=== PATIENT | male | born 1975 | race Two or more races ===

== ENCOUNTER 2019-09-09 09:56 | Outpatient (CLI) | payer MEDICARE ==
[~2019-09-09] VITALS: Ht 167.6 cm; Wt 86.2 kg
[2019-09-09 13:20] VITALS: BP 152/100
[2019-09-09] MEDS ORDERED: HUMALOG100 UNIT/4 SUBQ (13:20)
[2019-09-09] MEDS ORDERED: HYDROCHLOROTHIA25 MG ORAL (13:20)
[2019-09-09] MEDS ORDERED: BENAZEPRIL HCL40 MG ORAL (13:20)
[2019-09-09] MEDS ORDERED: AMLODIPINE BES2.5 MG ORAL (13:20)
[2019-09-09] MEDS ORDERED: IBUPROFEN600 MG ORAL (13:20)
[2019-09-09] MEDS ORDERED: POTASSIUM CHLOR8 ME2 PO (13:20)
[2019-09-09] MEDS ORDERED: OMEPRAZOLE20 M2 ORAL (13:20)
== END 2019-09-09 12:56 | disposition home or self-care (01) ==
LOC: PAN 09:56
DX: R10.9 Unspecified abdominal pain (principal)
CPT/HCPCS: G0463

== ENCOUNTER 2019-09-10 07:27 | Day surgery (SDC) | payer MEDICARE, OTHER ==
[2019-09-10] VITALS (7 sets, daily range): BP systolic 142–176; BP diastolic 75–113
[~2019-09-10] VITALS: Ht 165.1 cm; Wt 86.2 kg
[~2019-09-10 07:27] MED LIST: AMLODIPINE BES2.5 MG ORAL; BENAZEPRIL HCL40 MG ORAL; HUMALOG100 UNIT/4 SUBQ; HYDROCHLOROTHIA25 MG ORAL; IBUPROFEN600 MG ORAL; OMEPRAZOLE20 M2 ORAL; POTASSIUM CHLOR8 ME2 PO
[2019-09-10] MEDS ORDERED: LR 1000ml 1,000 ML IVLG SCH (07:29)
[2019-09-10] MEDS ORDERED: fentaNYL 100 mcg/2 mL IV ONE (08:33)
[2019-09-10] MEDS ORDERED: Midazolam 2mg/2ml Inj ONE (08:33)
--- NOTE | 2019-09-10 08:52 | Anethesia Preoperative Eval ---
Anesthesia Pre-op PMH/ROS General Date of Evaluation: Sep 10, 2019 Time of Evaluation: 08:49 Anesthesiologist: Issa ASA Score: ASA 3 Mallampati Score Class I : Soft palate, uvula, fauces, pillars visible Class II: Soft palate, uvula, fauces visible Class III: Soft palate, base of uvula visible Class IV: Only hard plate visible Mallampati Classification: Class III Surgeon: Chau Diagnosis: Abdominal pain Surgical Procedure: EGD Anesthesia History: none Family History: no anesthesia problems Allergies: Coded Allergies: No Known Allergies (Unverified , 09/09/19) Medications: see eMAR Patient NPO?: Yes Past Medical History Cardiovascular: Reports: HTN - stable on meds; Denies: CAD, OH, valve dz, arrhythmia, other Pulmonary: Denies: asthma, COPD, VINCENT, other Gastrointestinal/Genitourinary: Reports: GERD Neurologic/Psychiatric: Denies: dementia, CVA, depression/anxiety, TIA, other Endocrine: Reports: DM; Denies: hypothyroidism, steroids, other HEENT: Reports: cataract (L), cataract (R); Denies: glaucoma, ANVIK (L), ANVIK (R), other Hematology/Immune: Denies: anemia, DVT, bleeding disorder, other Musculoskeletal/Integumentary: Denies: OA, RA, DJD, DDD, edema, other Other: obesity PMH Narrative: as above PSxH Narrative: See H&P Anesthesia Pre-op Phys. Exam Physician Exam Last Vital Signs Date Time Temp Pulse Resp B/P (MAP) Pulse Ox O2 Delivery O2 Flow Rate FiO2 09/10/19 08:15 Room Air Constitutional: NAD Neurologic: CN 2-12 intact Cardiovascular: RRR, no M/R/G Respiratory: CTA Gastrointestinal: S/NT/ND Airway Exam Mallampati Score: Class II MO: limited Neck: stiff ROM: limited Teeth: missing Dentures: no upper, no lower Anesthesia Pre-op A/P Labs see chart Studies Pre-op Studies: EKG - SR Risk Assessment & Plan Assessment: ASA 3 Plan: MAC Status Change Before Surgery: Mao Nuñez MD Sep 10, 2019 08:52
[2019-09-10 08:57] LABS: BASOPHILS % (AUTO) 1.5 % (0.0-2.0); EOSINOPHILS % (AUTO) 1.1 % (0.0-3.0); HEMATOCRIT 32.6 % (42.0-52.0); HEMOGLOBIN 11.3 G/DL (14.2-18.0); LYMPHOCYTES % (AUTO) 29.4 % (20.0-45.0); MEAN CORPUSCULAR VOLUME 90 FL (80-99); MONOCYTES % (AUTO) 8.4 % (1.0-10.0); NEUTROPHILS % (AUTO) 59.6 % (45.0-75.0); PLATELET COUNT 146 K/UL (150-450); RED BLOOD COUNT 3.61 M/UL (4.70-6.10); RED CELL DISTRIBUTION WIDTH 11.5 % (11.6-14.8)
[2019-09-10] MEDS ORDERED: LR 1000ml ONE (09:00)
[2019-09-10] MEDS ORDERED: Propofol 200mg/20ml IV ONE (09:00)
--- NOTE | 2019-09-10 09:03 | Pre-Procedure Note/Attestation ---
Pre-Procedure Note/Attestation Complete Prior to Procedure Planned Procedure: not applicable Procedure Narrative: egd Indications for Procedure Pre-Operative Diagnosis: abd pain Attestation I attest that I discussed the nature of the procedure; its benefits; risks and complications; and alternatives (and the risks and benefits of such alternatives ), prior to the procedure, with the patient (or the patient's legal underwriting account representative). I attest that, if there was a reasonable possibility of needing a blood transfusion, the patient (or the patient's legal underwriting account representative) was given the [facility] standardized written summary, pursuant to the Zeb Abel Blood Safety Act ([place] Health and Safety Code # 1645, as amended). I attest that I re-evaluated the patient just prior to the surgery and that there has been no change in the patient's H&P, except as documented below: Puneet Ritchie MD Sep 10, 2019 09:03
--- NOTE | 2019-09-10 09:04 | Short Stay Surgery H&P ---
History of Present Illness History of Present Illness Chief Complaint abd pain HPI Jone Fuentes is a 44 year old male who was admitted on for GERD Patient History Allergies: Coded Allergies: No Known Allergies (Unverified , 09/09/19) PAST MEDICAL HISTORY: (1) DM (diabetes mellitus) (2) mental retardation (3) HTN (hypertension) Medication History Scheduled Amlodipine Besylate* (Amlodipine Besylate*), 2.5 MG ORAL DAILY, (Reported) Benazepril Hcl* (Benazepril Hcl*), 40 MG ORAL DAILY, (Reported) Hydrochlorothiazide* (Hydrochlorothiazide*), 25 MG ORAL DAILY, (Reported) Omeprazole (Omeprazole), 20 MG ORAL DAILY, (Reported) Potassium Chloride (Potassium Chloride), 8 MEQ PO DAILY, (Reported) Scheduled PRN Ibuprofen* (Motrin*), 400 MG ORAL Q6H PRN for For Pain, (Reported) Miscellaneous Medications Insulin Lispro (Humalog), 0 SUBQ, (Reported) Review of Systems Cardiovascular: Reports: no symptoms Respiratory: Reports: no symptoms Skeletal: Reports: no symptoms Gastrointestinal: Reports: gastro esophageal reflux disease Genitourinary: Reports: no symptoms Neurologic: Reports: no symptoms Endocrine: Reports: no symptoms Hematologic: Reports: no symptoms Physical Exam Vital Signs Last Vital Signs Date Time Temp Pulse Resp B/P (MAP) Pulse Ox O2 Delivery O2 Flow Rate FiO2 09/10/19 08:15 Room Air Labs Laboratory Tests Test 09/10/19 05:35 White Blood Count 6.0 K/UL (4.8-10.8) Red Blood Count 3.61 M/UL (4.70-6.10) L Hemoglobin 11.3 G/DL (14.2-18.0) L Hematocrit 32.6 % (42.0-52.0) L Mean Corpuscular Volume 90 FL (80-99) Mean Corpuscular Hemoglobin 31.2 PG (27.0-31.0) H Mean Corpuscular Hemoglobin Concent 34.6 G/DL (32.0-36.0) Red Cell Distribution Width 11.5 % (11.6-14.8) L Platelet Count 146 K/UL (150-450) L Mean Platelet Volume 9.1 FL (6.5-10.1) Neutrophils (%) (Auto) 59.6 % (45.0-75.0) Lymphocytes (%) (Auto) 29.4 % (20.0-45.0) Monocytes (%) (Auto) 8.4 % (1.0-10.0) Eosinophils (%) (Auto) 1.1 % (0.0-3.0) Basophils (%) (Auto) 1.5 % (0.0-2.0) Sodium Level Pending Potassium Level Pending Chloride Level Pending Carbon Dioxide Level Pending Blood Urea Nitrogen Pending Creatinine Pending Estimat Glomerular Filtration Rate Pending Glucose Level Pending Calcium Level Pending Total Bilirubin Pending Aspartate Amino Transf (AST/SGOT) Pending Alanine Aminotransferase (ALT/SGPT) Pending Alkaline Phosphatase Pending Total Protein Pending Albumin Pending Globulin Pending Amylase Level Pending Lipase Pending Skin: normal HENT: normal Heart: normal Lungs: normal Abdomen: normal Extremities: normal Plan Plan of Care egd Attestation Are the patient's medical conditions optimized for surgery? Attestation Response: yes Puneet Ritchie MD Sep 10, 2019 09:04
[2019-09-10 09:09] LABS: ANION GAP 9 mmol/L (5-15); BLOOD UREA NITROGEN 33 mg/dL (7-18); CALCIUM 8.5 MG/DL (8.5-10.1); CARBON DIOXIDE 27 MMOL/L (21-32); CHLORIDE 105 MMOL/L (98-107); CREATININE 1.6 MG/DL (0.55-1.30); POTASSIUM 3.8 MMOL/L (3.5-5.1); SODIUM 141 MMOL/L (136-145)
[2019-09-10 09:13] LABS: ALANINE AMINOTRANSFERASE 20 U/L (12-78); ALBUMIN/GLOBULIN RATIO 0.8 (1.0-2.7); ALKALINE PHOSPHATASE 109 U/L (46-116); AMYLASE 47 U/L (25-115); ASPARTATE AMINO TRANSFERASE 18 U/L (15-37); BILIRUBIN,TOTAL 0.3 MG/DL (0.2-1.0)
--- NOTE | 2019-09-10 09:16 | Endoscopy Procedure Note ---
Endoscopy Procedure Note General Indication for Procedure: abd pain Procedures Performed: EGD Operative Findings/Diagnosis: gastritis Specimen: yes Pt Tolerated Procedure Well: Yes Estimated Blood Loss: none Anesthesia Anesthesiologist: britney Anesthesia: MAC Inserted Devices Implant(s) used?: No GI Core Measures 50 yrs or older w/o bx or poly: Not Applicable 10yrs. F/U recommended: Not Applicable Puneet Ritchie MD Sep 10, 2019 09:16
--- NOTE | 2019-09-10 09:24 | Immediate Post-Op Evaluation ---
Immediate Post-Op Evalulation Immediate Post-Op Evalulation Procedure: EGD with Bx Date of Evaluation: Sep 10, 2019 Time of Evaluation: 09:23 IV Fluids: 250 Blood Products: none Estimated Blood Loss: none Urinary Output: none Blood Pressure Systolic: 146 Blood Pressure Diastolic: 86 Pulse Rate: 88 Respiratory Rate: 20 O2 Sat by Pulse Oximetry: 99 Temperature (Fahrenheit): 97.6 Pain Score (1-10): 1 Nausea: No Vomiting: No Complications none Patient Status: awake, none Hydration Status: adequate Mao Parsons MD Sep 10, 2019 09:24
--- NOTE | 2019-09-10 11:17 | 48 Hour Post Anesthesia Eval ---
Post Anesthesia Evaluation Procedure: EGD with Bx Date of Evaluation: Sep 10, 2019 Time of Evaluation: 11:16 Blood Pressure Systolic: 148 0: 75 Pulse Rate: 82 Respiratory Rate: 20 Temperature (Fahrenheit): 97.6 O2 Sat by Pulse Oximetry: 98 Airway: patent Nausea: No Vomiting: No Pain Intensity: 1 Hydration Status: adequate Cardiopulmonary Status: stable Mental Status/LOC: patient returned to baseline Follow-up Care/Observations: n/a Post-Anesthesia Complications: none Follow-up care needed: ready to discharge Mao Parsons MD Sep 10, 2019 11:17
--- NOTE | 2019-09-10 17:30 | Consultation ---
DATE OF CONSULTATION: 09/09/2019 GASTROENTEROLOGY CONSULTATION CONSULTING PHYSICIAN: Puneet Ritchie M.D. REFERRING PHYSICIAN: Dr. Marinelli. CHIEF COMPLAINT: Abdominal pain. HISTORY OF PRESENT ILLNESS: Most of the history per caregiver. This is a 44-year-old male with mental retardation, hypertension, and diabetes, who was brought to us for evaluation of epigastric abdominal pain. Apparently, the patient has been in the emergency room multiple times and had imaging studies. According to the family, ultrasound was negative. Blood work has been negative. The patient is complaining of abdominal pain and referral was for possible endoscopy. PAST MEDICAL HISTORY: 1. Hypertension. 2. Diabetes. 3. Mental retardation. PAST SURGICAL HISTORY: Eye surgery. MEDICATIONS: Please see medication reconciliation list. FAMILY HISTORY: Noncontributory. SOCIAL HISTORY: Does not smoke tobacco, alcohol, or IV drug abuse. ALLERGIES: No known drug allergies. REVIEW OF SYSTEMS: Limited except for abdominal pain and bloating. PHYSICAL EXAMINATION: VITAL SIGNS: Temperature 97.8, blood pressure is 152/100, pulse is 94, and respirations 20. HEENT: Normocephalic and atraumatic. Poor dentition. NECK: Supple. No evidence of obvious lymphadenopathy. CARDIOVASCULAR: Tachycardiac. Regular rate. Plus S1, S2. LUNGS: Clear to auscultation bilaterally. ABDOMEN: Positive bowel sounds. Soft. Minimal tenderness to palpation in the epigastric area. No rebound. No guarding. No peritoneal sign. EXTREMITIES: No cyanosis. No clubbing. No edema. ASSESSMENT AND PLAN: This is a 44-year-old male with epigastric abdominal pain and negative workup according to the family including imaging studies. Plan to do an endoscopy tomorrow. The patient to be brought to [facility] for endoscopy tomorrow. We will also going to set up labs for tomorrow including CBC, CMP, amylase, and lipase. I want to thank, Dr. Marinelli, for this kind referral. Puneet Ritchie M.D. DR: GILBERT JOB#: [id number] CC: Dr. Marinelli
--- NOTE | 2019-09-10 18:00 | Procedure Note ---
DATE OF PROCEDURE: 09/10/2019 SURGEON: Puneet Ritchie M.D. REFERRING PHYSICIAN: Dr. Marinelli. PROCEDURE: Upper endoscopy with biopsy. ANESTHESIA: Per Dr. Parsons. INSTRUMENT: Olympus adult flexible upper endoscope. INDICATION: Abdominal pain. The procedure, risks, benefits, and possible consequences, including hemorrhage, aspiration, perforation and infection, and alternative treatments, were explained to the patient/legal guardian by Dr. Puneet Ritchie and the patient/legal guardian understood and accepted these risks. DESCRIPTION OF PROCEDURE: After informed consent was obtained and the patient was adequately sedated, Olympus upper endoscope was advanced from mouth into the second portion of the duodenum and retroflexion was performed in the stomach. The patient has evidence of diffuse gastritis. Random biopsies from antrum was obtained to rule out H. pylori infection. We had also incidental finding. We saw a very prominent minor ampulla. At this time, the upper endoscope was retrieved and the procedure was terminated. SUMMARY OF FINDINGS: 1. Gastritis, status post biopsy. 2. Very prominent minor ampulla. PLAN: Start the PPI daily. We are going to do liver function tests, amylase, and lipase for tomorrow. If there is any evidence of pancreatitis, the patient might benefit from MRCP to rule out pancreatic disease, but given the patient's mental retardation, the patient most probably would need an anesthesia for that. We will discuss with primary care physician and family when the results of the labs are available. I want to thank, Dr. Marinelli, for this kind referral. Puneet Ritchie M.D. DR: DIANA JOB#: [id number] CC: Dr. Marinelli
--- NOTE | 2019-09-11 12:49 | Cardiology Report ---
APPROVED REPORT EKG Measurement Heart [id number] Normal sinus rhythm Left axis deviation Pulmonary disease pattern Abnormal ECG
== END 2019-09-10 10:20 | disposition home or self-care (01) ==
LOC: GAS 07:27
DX: R10.9 Unspecified abdominal pain (principal); K29.70 Gastritis, unspecified, without bleeding; K22.8 Other specified diseases of esophagus; F79 Unspecified intellectual disabilities; E11.9 Type 2 diabetes mellitus without complications; I10 Essential (primary) hypertension; K21.9 Gastro-esophageal reflux disease without esophagitis; E66.9 Obesity, unspecified; Z68.31 Body mass index [BMI] 31.0-31.9, adult; Z79.899 Other long term (current) drug therapy
CPT/HCPCS: 36415; 43239; 80053; 82150; 82962; 83690; 85025; 93005; J2250; J2704; J3010; J7120; 94003; 94150

== ENCOUNTER 2019-12-02 10:50 | Outpatient (CLI) | payer MEDICARE, MEDICAID ==
[2019-12-02 15:11] VITALS: BP 156/72
--- NOTE | 2019-12-03 13:37 | General Progress Note ---
Assessment/Plan Assessment/Plan: PAST MEDICAL HISTORY: 1. Hypertension. 2. Diabetes. 3. Mental retardation. s/p EGD + HP treat and RTC 3 months Subjective ROS Limited/Unobtainable: Yes Allergies: Coded Allergies: No Known Allergies (Unverified , 09/09/19) Objective Last 24 Hour Vital Signs Date Time Temp Pulse Resp B/P (MAP) Pulse Ox O2 Delivery O2 Flow Rate FiO2 12/02/19 15:11 97.4 83 18 156/72 (100) General Appearance: alert EENT: normal ENT inspection Neck: supple Cardiovascular: normal rate Respiratory/Chest: decreased breath sounds Abdomen: normal bowel sounds, non tender, soft Extremities: non-tender Puneet Ritchie MD Dec 03, 2019 13:37
== END 2019-12-02 12:50 | disposition home or self-care (01) ==
LOC: PAN 10:50
DX: E11.9 Type 2 diabetes mellitus without complications (principal); I10 Essential (primary) hypertension; F79 Unspecified intellectual disabilities
CPT/HCPCS: 99212